=== PATIENT | female | born 1975 | race Caucasian/White ===

== ENCOUNTER → 2016-07-30 | Outpatient (CLI) | payer OTHER ==
[~2016-07-30] MED LIST: BIOTIN1000 MICRO PO; CIPRO500 MG PO; CLARITIN,ALAVAR10 MG PO; FLAGYL500 MG PO; LEVO-T25 MCG PO; LEVOTHYROXINE200 MC1 PO; LEVOTHYROXINE25 MCG PO; LISINOPRIL10 MG PO; MULTIPLE VITAM1 EACH PO; NOHOMEMEDS; NORCO 5/3251 TABLET PO; NORGESTIMATE-E1 EAC1 PO; PERCOCET 5/31 TABLET PO; SPRINTEC1 EACH PO; ZOFRAN ODT4 MG PO
== END | disposition home or self-care (01) ==
LOC: CDC 09:45
DX: I49.9 Cardiac arrhythmia, unspecified (principal); I10 Essential (primary) hypertension
CPT/HCPCS: 93000

== ENCOUNTER 2016-07-31 07:13 | Day surgery (SDC) | payer OTHER ==
[~2016-07-31] VITALS: Ht 175.3 cm; Wt 109.0 kg
[~2016-07-31 07:13] MED LIST changes: -NORCO 5/3251 TABLET PO
[2016-07-31 07:39] VITALS: BP 143/78
[2016-07-31] MEDS ORDERED: NORCO 5/3251 TABLET PO (11:25)
[2016-07-31 12:50] VITALS: BP 116/66
[2016-07-31 14:10] VITALS: BP 110/62
== END 2016-07-31 14:40 | disposition home or self-care (01) ==
LOC: SDC
DX: K80.10 Calculus of gallbladder with chronic cholecystitis without obstruction (principal); I10 Essential (primary) hypertension; Z88.0 Allergy status to penicillin
CPT/HCPCS: 74300; 88304; J0330; J1100; J1170; J1885; J2250; J2405; J2710; J2765; J3010; J7050; S0020; S0074